=== PATIENT | male | born 1950 | race Caucasian/White ===

== ENCOUNTER 2016-08-15 15:28 | Inpatient (IN) | payer MEDICARE, OTHER ==
[~2016-08-15] VITALS: Ht 170.2 cm; Wt 87.7 kg
--- NOTE | ~2016-08-15 | CN ---
PATIENT NAME:YU GASTON MEDICAL RECORD: [id number] : 46 LOCATION:D. D.2105 ADMIT DATE: 08/15/16 ACCOUNT: [id number] CONSULTING PHYSICIAN: DAHIANA WITT MD REFERRING PHYSICIAN: BARI RASCON MD DATE OF CONSULTATION: 08/16/2016 CHIEF COMPLAINT: Abdominal pain. HISTORY OF PRESENT ILLNESS: The patient has idiopathic pulmonary fibrosis. He has recurrent pancreatitis. This is his fifth episode of pancreatitis. He has known gallstones in the gallbladder and my plan for his pancreatitis is to resolve and then plan laparoscopic cholecystectomy. We discussed the function of the gallbladder how it works and how he might have post-cholecystectomy diarrhea, which may affect him in that, if he has quick transit time, it could affect one of the medicines that is very important for him to take that is a medicine for pulmonary fibrosis. Palpation aggravates. Nothing alleviates. Symptoms are band-like in the epigastrium. They do not radiate to the back. He has had some nausea. This is a consultation note addendum. For the typed portion of the consult note, please see the chart, these would include the past medical and surgical history, allergies, family history, social history as well as current medications. REVIEW OF SYSTEMS: No fatigue, no headache, no chest pain, no chills, no epistaxis, no shortness of breath, no neck stiffness. PHYSICAL EXAMINATION: GENERAL: The patient does not appear acutely ill. He does not appear chronically ill. VITAL SIGNS: Reviewed. HEAD: External ears appear normal. FACE: He has a maye face. NECK: Trachea is midline. EARS: The ears are normal. CHEST: Mildly labored. NECK: Trachea is midline. ABDOMEN: Mildly tender in the epigastrium. EXTREMITIES: No peripheral cyanosis. INTEGUMENT: No rash, no ulcerations. PSYCHIATRIC: Normal affect. NEUROLOGIC: Nonfocal, no lethargy. The patient answers questions appropriately. Moves all extremities well. BACK: No thoracic kyphosis. LYMPHATICS: No lymphangitic streaking of the exposed extremities. IMPRESSION: Recurrent pancreatitis likely gallstone pancreatitis. We reviewed other possible etiologies for pancreatitis and I told him I could not give him a guarantee that removal of his gallbladder would cause the episodes of pancreatitis to cease. PLAN: Laparoscopic cholecystectomy once his pancreatitis resolves. TRANSINT:[id number] Voice Confirmation ID: [id number] DOCUMENT ID: [id number] CONSULT REPORT [id number] YU GASTON ROBERT MD CC: [id number] DICTATION DATE: 08/16/161702 SVP DIGITAL AD SALES: 08/16/16 215 ADM IN [place] [id number] [place] [id number]
--- NOTE | ~2016-08-15 | OP ---
PATIENT NAME: YU GASTON MEDICAL RECORD: [id number] :46 LOCATION:D.M2 D.2105 ADMISSION DATE:08/15/16 SURGEON: DAHIANA WITT MD DATE OF OPERATION: 08/18/2016 PREOPERATIVE DIAGNOSIS: Presumed gallstone pancreatitis. POSTOPERATIVE DIAGNOSES: Presumed gallstone pancreatitis with lower midline adhesions and also hepatomegaly. PROCEDURES: 1. Laparoscopic cholecystectomy. 2. Intraoperative cholangiography without immediate surgeon interpretation. 3. An 18-gauge core needle liver biopsy. SURGEON: Dahiana Witt MD BOAT BUFFER PLASTIC: None. BLOOD LOSS: Minimal. ANESTHESIA: General. COMPLICATIONS: None. The indication for the liver biopsy was hepatomegaly. OPERATIVE COURSE: The patient was conveyed to the operating room electively on 08/18/2016. General anesthesia was induced by the anesthesia staff. The abdomen was sterilely prepped and draped. A small skin charleen was accomplished in the left upper quadrant. A Veress needle was inserted through the skin charleen into the peritoneal cavity. CO2 insufflation was begun. Once a sufficient pneumoperitoneum had been achieved, a 5-mm trocar was inserted through an incision in the right upper quadrant. Under direct internal vision utilizing a television camera, a 12-mm trocar was inserted through an incision at the umbilicus. Another 5-mm trocar was inserted through an incision in the epigastrium. Another 5-mm trocar was inserted through an incision far laterally in the right upper quadrant. Under laparoscopic guidance, I percutaneously accessed the right upper quadrant utilizing an 18-gauge core needle liver biopsy device. Cores were obtained over the convexity of the liver. The biopsy sites were made hemostatic with the electrocautery. I then went about performing the cholangiogram. I advanced the cholangiogram trocar. I punctured the fundus of the gallbladder. I aspirated bile. I then injected dye. Real-time fluoroscopic images were obtained and these are kept in the PACS system for the radiologist to interpret. I aspirated the bile and removed the cholangiogram trocar. The gallbladder was grasped and retracted in cephalad. It was fatty encased. I dissected in the triangle of Calot. I identified 2 cystic arteries and 1 cystic duct. These were clipped multiply and divided between clips. The gallbladder was then excised from its bed in the liver. It was placed within a bag retrieval device and was withdrawn through the umbilical fascia defect. OPERATIVE REPORT [id number] YU GASTON I irrigated and aspirated in the right upper quadrant. There was no bleeding even at low pressure of 8. I added Shamar to the gallbladder fossa for additional hemostasis. The 12-mm trocar was removed. The Stewart-Pedro suture closure device and a 0 Vicryl suture was used to close the umbilical fascia. All trocars were removed and the abdomen desufflated. The skin incision at the umbilicus was closed with interrupted 4-0 Vicryl Rapide sutures. The other skin incisions were closed with interrupted 3-0 and 4-0 Vicryls. Benzoin and Steri-Strips were applied. The patient was then extubated and conveyed to post-anesthesia care unit where he was in stable condition. I will plan for him to be dismissed home tomorrow. TRANSINT:[id number] Voice Confirmation ID: [id number] DOCUMENT ID: [id number] DAHIANA WITT MD CC: [id number] DICTATION DATE: 08/18/162003 PARISH NURSE: 08/19/16 0048 ADM IN [facility] [address] [place] [address]
--- NOTE | ~2016-08-15 | PN ---
PATIENT:YU GASTON MEDICAL RECORD: [id number] LOCATION:D. D.210 ADMISSION DATE: 08/15/16 PROGRESS NOTE DATE OF SERVICE: 08/17/2016 CHIEF COMPLAINT: Pancreatitis. The patient has presumed gallstone pancreatitis. He has had 5 episodes of pancreatitis in the past. His condition is improving. He is having almost no abdominal pain now. His laboratory numbers are normalizing. He is not having any back pain. No nausea. Nothing aggravates. Nothing alleviates. He is really almost asymptomatic. I am going to plan for laparoscopic cholecystectomy, intraoperative cholangiography, possible open procedure, and possible liver biopsy tomorrow. I told him that I cannot guarantee that removal of the gallbladder will resolve his bouts of pancreatitis or prevent them in the future. He elects to proceed. This is a progress note addendum. For the typed portion of the progress note, please see the chart. This would include current medications, past medical and surgical history, social history as well as family history. REVIEW OF SYSTEMS: No nausea, no vomiting, no fever, no chills, no back pain, no abdominal pain, no shortness of breath, no chest pain. The review of systems is negative other than as is described above. PHYSICAL EXAMINATION: GENERAL: The patient does not appear acutely ill. He does not appear chronically ill. VITAL SIGNS: Reviewed. HEAD: External ears appear normal. EYES: Extraocular movements are intact. NECK: Trachea is midline. CHEST: No intercostal retractions. PULMONARY: Nonlabored, no stridor. ABDOMEN: Nontender. No peritonitis to percussion. EXTREMITIES: No peripheral cyanosis. INTEGUMENT: No rash, no ulcerations. PSYCHIATRIC: Normal affect. NEUROLOGIC: Nonfocal, no lethargy. The patient answers questions appropriately and moves all extremities well. BACK: No thoracic kyphosis. LYMPHATIC: No lymphangitic streaking of the exposed extremities. IMPRESSION: Presumed gallstone pancreatitis. PLAN: Continue with IV parenteral narcotic analgesia. Laparoscopic cholecystectomy tomorrow as described above. TRANSINT:[id number] Voice Confirmation ID: [id number] DOCUMENT ID: [id number] PROGRESS NOTE [id number] YU GASTON ROBERT MD CC: [id number] DICTATION DATE: 08/18/162000 CLOUD PHYSICIST: 08/19/16 0601 ADM IN [place] [id number] [place], [place] [id number]
[2016-08-15 16:14] LABS: BASOPHILS 0.1 % (0-2); EOSINOPHILS 2.6 % (0-7); HEMATOCRIT 43.1 % (42.0-54.0); HEMOGLOBIN 14.5 g/dL (13.5-17.5); IMMATURE GRANULOCYTES 0.2 % (0-5); LYMPHOCYTES 18.8 % (15-50); MCH 32.7 pg (26.0-34.0); MCHC 33.6 g/dL (31.0-37.0); MCV 97.1 fL (80.0-100.0); MEAN PLATELET VOLUME 10.2 fL (7.4-10.4); MONOCYTES 8.2 % (2-11); NEUTROPHILS 70.1 % (40-80); RBC 4.44 10x6/uL (4.20-6.10); RDW 12.5 % (11.5-14.5); WBC 12.8 10x3/uL (4.8-10.8)
[2016-08-15 16:23] LABS: PLATELET COUNT 249 10x3/uL (130-400)
[2016-08-15 16:38] LABS: ALBUMIN 3.9 g/dL (3.4-5.0); ALKALINE PHOSPHATASE 102 U/L (46-116); ALT (SGPT) 34 U/L (10-68); BILIRUBIN - TOTAL 0.52 mg/dL (0.2-1.3); CALC OSMOLALITY 270 mosm/kg (275-300); CALCIUM 9.5 mg/dL (8.5-10.1); CARBON DIOXIDE 28.2 mmol/L (21.0-32.0); CHLORIDE - SERUM 98 mmol/L (98-107); GLUCOSE 97 mg/dL (74-106); POTASSIUM - SERUM 4.2 mmol/L (3.5-5.1); PROTEIN - SERUM 8.6 g/dL (6.4-8.2); SODIUM 135 mmol/L (136-145); UREA NITROGEN 16 mg/dL (7-18); eGFR NON AFRICAN AMERICAN 79 mL/min (90-120)
[2016-08-15 16:46] LABS: LIPASE 7442 U/L (73-393)
[2016-08-15 16:55] LABS: AMYLASE - SERUM 1383 U/L (25-115)
--- NOTE | 2016-08-15 18:57 | NUR ---
1850- RECEIVED PT VIA STRETCHER FROM ER STAFF MEMBER. PT IS ALERT AND ORIENTED. UP AD LILIANA. ON 02 AT 2L VIA NC. IV SEEN TO RIGHT AC THAT IS CURRENTLY SALINE LOCKED. WILL DO QUICKSTART AND PASS THIS ALONG TO EYEGLASS FRAME TRUER NURSE.
--- NOTE | 2016-08-15 18:59 | NUR ---
1834- VIVIANE ARGUETA IN ER CALLED AND GAVE REPORT FOR PT. AWAITING PT ARRIVAL NOW.
[2016-08-15] MEDS ORDERED: OFEV 150 MG (19:02)
--- NOTE | 2016-08-15 19:02 | NUR ---
PT STATES THE ONLY MEDICATION HE KNOWS HE TAKES IS OFEV AND HIS WILL KNOW THE REST. PT STATES HE CANNOT NAME ALL OF HIS OTHER MEDICATONS. PT STATES HE WILL HAVE BRING MEDICATIONS UP HERE SO WE CAN DO MED REC. WILL PASS THIS ALONG.
[2016-08-15] MEDS ORDERED: PROVENTIL HFA6.7 GM INH (19:07)
[2016-08-15] MEDS ORDERED: WELLBUTRIN SR150 MG PO (19:08)
[2016-08-15] MEDS ORDERED: NEURONTIN 300300 MG PO (19:09)
[2016-08-15] MEDS ORDERED: OMEPRAZOLE20 M1 PO (19:09)
[2016-08-15] MEDS ORDERED: CALCIUM 500 + D1 TAB PO (19:10)
[2016-08-15] MEDS ORDERED: BAYER CHEWABLE81 MG PO (19:11)
[2016-08-15] MEDS ORDERED: MULTI-DAY VITAM1 TAB PO (19:11)
[2016-08-15] MEDS ORDERED: ZOCOR80 MG PO (19:11)
--- NOTE | 2016-08-15 19:23 | NUR ---
PT AWAKE, ALERT, ORIENTED, LYING IN BED, DENIES ANY ACUTE NEEDS AT THIS TIME, IS IN NO ACUTE DISTRESS. CONTINUE TO MONITOR CLOSELY.
[2016-08-15 19:55] VITALS: BP 169/77
[2016-08-15 20:33] VITALS: BP 169/77; BMI 30.9
[2016-08-16 00:48] VITALS: BP 145/64
--- NOTE | 2016-08-16 02:48 | NUR ---
PT DID EAT 2 ORANGE JELLO'S AND IS DRINKING ICE WATER WITHOUT ANY DIFFICULTY OR NAUSEA. CONTINUE TO MONITOR CLOSELY.
[2016-08-16 04:45] LABS: CHOL - HDL RATIO 2.8 ratio (2.3-4.9); LDL-HDL RATIO 1.3 ratio (1.5-3.5)
[2016-08-16 04:52] VITALS: BP 132/61
--- NOTE | 2016-08-16 07:44 | NUR ---
AM ROUNDING- RECEIVED REPORT FROM TRUST MANAGER ASSISTANT NURSE ROSETTE. PT IS NABILAY LAYING IN BED ON BACK WITH EYES OPEN RESTING. IS AT BEDSIDE. PT IS C/O 8/10 ABDOMINAL PAIN. ON 02 AT 2L VIA NC. NO MONITOR. IV SEEN TO RIGHT AC WITH NS RUNNING AT 125CC. NO NEED AT CURRENT TIME. WILL SEE WHAT PT HAS FOR PAIN AND GIVE ORDERED. WILL CONTINUE TO MONITOR AND CONTINUE WITH PLAN OF CARE.
[2016-08-16 08:57] VITALS: BP 101/65
[2016-08-16 12:00] VITALS: BP 156/66
[2016-08-16 12:18] VITALS: Ht 170.2 cm; Wt 87.7 kg
[2016-08-16 16:00] VITALS: BP 155/76
--- NOTE | 2016-08-16 18:15 | NUR ---
PT IS CURRENTLY LAYING IN BED ON BACK WITH EYES OPEN RESTING. AND GUEST AT BEDSIDE. PT IS CURRENTLY REQUESTING SOMETHING FOR PAIN. INFORMED PT THAT I WILL CHECK TO SEE WHAT HE HAS. WILL CONTINUE TO MONITOR.
--- NOTE | 2016-08-16 19:36 | NUR ---
ASSESSMENT COMPLETE, A&O. 02 AT 2 LITER VIA NC. RSPERATIONS EVEN AND UNLABORED. IV TO RIGHT AC WITH NS INFUSING AT 125 CC/HR. PT DENIES PAIN OR NEEDS, BED LOW, CL IN REACH, AT BED SIDE.
[2016-08-16 20:00] VITALS: BP 159/74
--- NOTE | 2016-08-16 23:24 | NUR ---
RESTING WITH EYES CLOSED, RESPERATIONS EVEN, NO S/S DISTRESS NOTED.
[2016-08-17] VITALS: BP 133/59
--- NOTE | 2016-08-17 00:08 | NUR ---
DILAUDID 1 MG GIVEN FOR C/O PAIN
[2016-08-17 04:00] VITALS: BP 162/72
[2016-08-17 05:08] LABS: BASOPHILS 0.1 % (0-2); EOSINOPHILS 0.8 % (0-7); HEMATOCRIT 37.2 % (42.0-54.0); HEMOGLOBIN 12.9 g/dL (13.5-17.5); IMMATURE GRANULOCYTES 0.3 % (0-5); LYMPHOCYTES 9.4 % (15-50); MCH 33.1 pg (26.0-34.0); MCHC 34.7 g/dL (31.0-37.0); MCV 95.4 fL (80.0-100.0); MEAN PLATELET VOLUME 10.6 fL (7.4-10.4); MONOCYTES 9.6 % (2-11); NEUTROPHILS 79.8 % (40-80); PLATELET COUNT 217 10x3/uL (130-400); RDW 12.4 % (11.5-14.5)
[2016-08-17 05:13] LABS: WBC 17.1 10x3/uL (4.8-10.8)
[2016-08-17 05:42] LABS: ALBUMIN 3.1 g/dL (3.4-5.0); ALKALINE PHOSPHATASE 87 U/L (46-116); CALCIUM 8.8 mg/dL (8.5-10.1); CARBON DIOXIDE 26.5 mmol/L (21.0-32.0); CHLORIDE - SERUM 91 mmol/L (98-107); CREATININE - SERUM 0.8 mg/dL (0.6-1.3); GLUCOSE 73 mg/dL (74-106); LIPASE 691 U/L (73-393); POTASSIUM - SERUM 4.4 mmol/L (3.5-5.1); PROTEIN - SERUM 7.7 g/dL (6.4-8.2); SODIUM 127 mmol/L (136-145); eGFR NON AFRICAN AMERICAN > 90 mL/min (90-120)
[2016-08-17 05:45] LABS: ALT (SGPT) 23 U/L (10-68); CALC OSMOLALITY 251 mosm/kg (275-300); UREA NITROGEN 6 mg/dL (7-18)
--- NOTE | 2016-08-17 07:24 | NUR ---
AM ROUNDING MADE WITH PATIENT STATING PAIN IS 8/10 MAINLY SORENESS TO CHEST. FEMALE MEMBER IN CHAIR AT BEDSIDE. ON O2 2L PER NC. RIGHT AC SEENW ITH NS INFUSING AT 125 CC/HR.
[2016-08-17 08:00] VITALS: BP 161/86
--- NOTE | 2016-08-17 10:12 | NUR ---
COMPLAINTS OF UPPER ABDOMINAL PAIN 12/05, REQUESTED DILAUDID GIVEN.
[2016-08-17 12:17] VITALS: BP 134/73
[2016-08-17 16:36] VITALS: BP 159/71
[2016-08-17 19:00] VITALS: BP 127/81
--- NOTE | 2016-08-17 19:38 | NUR ---
ASSESSMENT COMPLETE, A&O. IV TO RIGHT AC WITH NS INFUSING AT 125, SITE CLEAN AND DRY. PT DENIES PAIN OR NEEDS AT THIS TIME, AT BED SIDE.
--- NOTE | 2016-08-18 01:00 | NUR ---
CALL LIGHT IN REACH, WILL CONTINUE WITH PLAN OF CARE.
[2016-08-18 04:00] VITALS: BP 148/74
[2016-08-18 05:47] LABS: BASOPHILS 0.1 % (0-2); EOSINOPHILS 1.2 % (0-7); HEMATOCRIT 33.7 % (42.0-54.0); HEMOGLOBIN 11.8 g/dL (13.5-17.5); IMMATURE GRANULOCYTES 0.3 % (0-5); LYMPHOCYTES 9.8 % (15-50); MCH 33.1 pg (26.0-34.0); MCV 94.7 fL (80.0-100.0); MEAN PLATELET VOLUME 10.6 fL (7.4-10.4); MONOCYTES 10.9 % (2-11); NEUTROPHILS 77.7 % (40-80); PLATELET COUNT 211 10x3/uL (130-400); RBC 3.56 10x6/uL (4.20-6.10); RDW 12.3 % (11.5-14.5); WBC 12.9 10x3/uL (4.8-10.8)
[2016-08-18 06:18] LABS: ALBUMIN 2.5 g/dL (3.4-5.0); ALKALINE PHOSPHATASE 109 U/L (46-116); ALT (SGPT) 23 U/L (10-68); AMYLASE - SERUM 44 U/L (25-115); CALC OSMOLALITY 255 mosm/kg (275-300); CALCIUM 8.4 mg/dL (8.5-10.1); CARBON DIOXIDE 25.7 mmol/L (21.0-32.0); CHLORIDE - SERUM 94 mmol/L (98-107); CREATININE - SERUM 0.8 mg/dL (0.6-1.3); GLUCOSE 81 mg/dL (74-106); LIPASE 195 U/L (73-393); POTASSIUM - SERUM 3.8 mmol/L (3.5-5.1); PROTEIN - SERUM 6.8 g/dL (6.4-8.2); SODIUM 129 mmol/L (136-145); UREA NITROGEN 7 mg/dL (7-18); eGFR NON AFRICAN AMERICAN > 90 mL/min (90-120)
[2016-08-18 08:11] VITALS: BP 118/69
[2016-08-18 12:08] VITALS: BP 145/71
--- NOTE | 2016-08-18 12:31 | NUR ---
IV TO RIGHT AC LEAKING. RE-SITED TO LEFT INNER WRIST X 2 STICKS WITH 22G.
--- NOTE | 2016-08-18 12:53 | NUR ---
Nutrition Follow Up: Chart reviewed. Pt to have lap ayesha. Wt stable. No BM since admit. Labs noted - Na low. Meds reviewed. Rec advancing diet as tolerated when medically feasible. RD will continue to monitor pt progress.
[2016-08-18 15:17] VITALS: BP 158/71
--- NOTE | 2016-08-18 16:31 | NUR ---
EKG DONE ORFERED.
--- NOTE | 2016-08-18 17:39 | NUR ---
TO OR VIA BED.
[2016-08-18 19:00] VITALS: BP 154/75
--- NOTE | 2016-08-18 20:17 | NUR ---
PT AWOKE RESTLESS AND DISORIENTED. PT HAS PULLED OFF OXYGEN MULTIPLE TIMES AND HAS TRIED TO CLIMB OUT OF BED. CONSULTED ANESTHESIA. V/O RECEIVED TO GIVE 2MG OF VERSED.
--- NOTE | 2016-08-18 20:28 | NUR ---
PT AWOKE RIGHT AT TRANSFER BACK TO ROOM FROM RECOVERY. PT WAS RESTLESS SAYING"THIS IS NOT GOING TO WORK" WHILE TRYING TO CLIMB OUT OF BED. PT AGAIN WAS TRYING TO TAKE NASAL CANNULA OFF FACE. ADMINISTEREED OTHER 1MG OF VERSED PER ORDER.
--- NOTE | 2016-08-18 20:48 | NUR ---
PT RECEIVED TO ROOM 2105 AT THIS TIME VIA HOSPITAL BED ACCOMPANIED BY RECOVERY ROOM NURSES. FAMILY MEMBER AT BEDSIDE.ASSESSMENT COMPLETED PER FLOW SHEET AT THIS TIME. HEART RRR. BOWEL SOUNDS HYPOACTIVE X4 QUADRENTS. RESPIRATIONS EVEN, UN-LABORED. PT RESTING QUIETLY AT THIS TIME WITH EYES CLOSED. NO NEEDS NOTED. BED LOW. PHONE AND CALL LIGHT IN REACH. SRX2.
--- NOTE | 2016-08-18 23:00 | NUR ---
PT WAS AGGRAVATED AND COMBATIVE AFTER WAKING UP FROM SEDATION, MAJORITY OF POST-OP VITALS WERE NOT RETRIEVED DUE TO PT PULLING BP CUFF OFF CONTINUOUSLY.
--- NOTE | 2016-08-18 23:00 | NUR ---
PT IV PULLED OUT AT THIS TIME. CATHETER TIP INTACT. PT REFUSES TO BE STUCK AGAIN AT THIS TIME.
--- NOTE | 2016-08-18 23:45 | NUR ---
SPOKE WITH DR. BENTLEY CONCERNING PT BEING IN PAIN AND NOT WANTING ANOTHER IV. HE STATES TO ORDER [place] Q4HPRN AT THIS TIME.
[2016-08-19] VITALS: BP 146/82
--- NOTE | 2016-08-19 00:40 | NUR ---
PT SITTING UP ON SIDE OF BED WITH FAMILY AT BEDSIDE. PT STILL RATING PAIN 6/10. PT WANTING TO GO HOME AT THIS TIME. REQUESTS TO SPEAK TO CHARGE NURSE. VIVIANE RIVAS NOTIFIED.
--- NOTE | 2016-08-19 02:07 | NUR ---
PT RESTING QUIETLY AT THIS TIME WITH EYES CLOSED. RESPIRATIONS EVEN, NON-LABORED. NO ACUTE DISTRESS NOTED AT THIS TIME. BED LOW. PHONE AND CALL LIGHT IN REACH. SRX2.
--- NOTE | 2016-08-19 03:10 | NUR ---
ADMINSITERED NORCO PO PER ORDERS AT THIS TIME FOR PAIN PT RATES 5/10. DENIES OTHER NEEDS. FAMILY REMAINS AT BEDSIDE. BED LOW. PHONE AND CALL LIGHT IN REACH. SRX2.
[2016-08-19 04:00] VITALS: BP 147/86
--- NOTE | 2016-08-19 04:50 | NUR ---
PT RESTING QUIETLY AT THIS TIME. AROUSED EASILY. DENIES NEEDS. BED LOW. PHONE AND CALL LIGHT IN REACH. SRX2.
--- NOTE | 2016-08-19 05:15 | NUR ---
PT SITTING UP ON SIDE OF BED WITH FAMILY MEMBER AT BEDSIDE. LAB IN ROOM AT THIS TIME. PT DENIES NEEDS. BED LOW. PHONE AND CALL LIGHT IN REACH. SRX2.
[2016-08-19 05:28] LABS: BASOPHILS 0 % (0-2); EOSINOPHILS 0.1 % (0-7); HEMATOCRIT 37.5 % (42.0-54.0); HEMOGLOBIN 12.9 g/dL (13.5-17.5); IMMATURE GRANULOCYTES 0.5 % (0-5); LYMPHOCYTES 7.9 % (15-50); MCH 33.1 pg (26.0-34.0); MCHC 34.4 g/dL (31.0-37.0); MCV 96.2 fL (80.0-100.0); MEAN PLATELET VOLUME 10.2 fL (7.4-10.4); MONOCYTES 6.1 % (2-11); NEUTROPHILS 85.4 % (40-80); PLATELET COUNT 264 10x3/uL (130-400); RDW 12.5 % (11.5-14.5); WBC 10.3 10x3/uL (4.8-10.8)
[2016-08-19 05:45] LABS: ALBUMIN 2.8 g/dL (3.4-5.0); ANION GAP 16.2 mmol/L (8-16); BILIRUBIN - TOTAL 1.21 mg/dL (0.2-1.3); CALCIUM 8.7 mg/dL (8.5-10.1); CARBON DIOXIDE 22.8 mmol/L (21.0-32.0); MAGNESIUM - SERUM 2.1 mg/dL (1.8-2.4); PHOSPHOROUS 2.9 mg/dL (2.5-4.9); PROTEIN - SERUM 7.9 g/dL (6.4-8.2)
[2016-08-19 05:47] LABS: CREATININE - SERUM 1.1 mg/dL (0.6-1.3)
--- NOTE | 2016-08-19 07:30 | NUR ---
PT REQ AND REC'D PRN PAIN MEDICATION FOR PAIN 12/05 TO ABD. PT FAMILY AT BEDSIDE ASSISTING WITH NEEDS. WCTM.
[2016-08-19 08:00] VITALS: BP 138/61
[2016-08-19] MEDS ORDERED: HYDROCODON-ACE1 EAC7 PO (08:18)
--- NOTE | 2016-08-19 10:30 | NUR ---
PT UP IN WC. PT FAMILY TAKING HIM AROUND THE HOSPITAL TO "GET OUT OF THE ROOM FOR A BIT."
--- NOTE | 2016-08-19 11:33 | NUR ---
PT BACK IN ROOM. FAMILY AT BEDSIDE. PT STATES "JUST WATING TO LEAVE." WCTM.
== END 2016-08-19 15:23 | disposition home or self-care (01) | DRG 419 ==
LOC: D.ER 15:28 → D.M2 17:29
PROVIDERS: Emergency Medicine; Surgery; ADMIT Family Medicine
PROC: BF111ZZ Fluoroscopy of Biliary and Pancreatic Ducts using Low Osmolar Contrast (ICD-10-PCS; 2016-08-18)
PROC: 0FT44ZZ Resection of Gallbladder, Percutaneous Endoscopic Approach (ICD-10-PCS; principal; 2016-08-18 13:45)
PROC: 0FB04ZX Excision of Liver, Percutaneous Endoscopic Approach, Diagnostic (ICD-10-PCS; 2016-08-18 13:45)
DX: K85.10 Biliary acute pancreatitis without necrosis or infection (principal); I10 Essential (primary) hypertension; E78.5 Hyperlipidemia, unspecified; K80.20 Calculus of gallbladder without cholecystitis without obstruction; R16.0 Hepatomegaly, not elsewhere classified; K66.0 Peritoneal adhesions (postprocedural) (postinfection); K21.9 Gastro-esophageal reflux disease without esophagitis; J84.112 Idiopathic pulmonary fibrosis

== ENCOUNTER 2016-08-25 14:49 | Emergency (ER) | payer MEDICARE, OTHER ==
[2016-08-16 12:18] VITALS: BMI 27.4
[~2016-08-25 14:49] MED LIST: BAYER CHEWABLE81 MG PO; CALCIUM 500 + D1 TAB PO; HYDROCODON-ACE1 EAC7 PO; MULTI-DAY VITAM1 TAB PO; NEURONTIN 300300 MG PO; OFEV 150 MG; OMEPRAZOLE20 M1 PO; PROVENTIL HFA6.7 GM INH; WELLBUTRIN SR150 MG PO; ZOCOR80 MG PO
[2016-08-25 16:32] LABS: BASOPHILS 0.2 % (0-2); EOSINOPHILS 0.8 % (0-7); HEMOGLOBIN 13.4 g/dL (13.5-17.5); IMMATURE GRANULOCYTES 0.6 % (0-5); LYMPHOCYTES 17.8 % (15-50); MCH 32.7 pg (26.0-34.0); MCHC 34.4 g/dL (31.0-37.0); MCV 95.1 fL (80.0-100.0); MEAN PLATELET VOLUME 10.1 fL (7.4-10.4); MONOCYTES 5.6 % (2-11); RDW 12.8 % (11.5-14.5); WBC 12.6 10x3/uL (4.8-10.8)
[2016-08-25 16:45] LABS: ALBUMIN 2.3 g/dL (3.4-5.0); ALKALINE PHOSPHATASE 262 U/L (46-116); ALT (SGPT) 62 U/L (10-68); BILIRUBIN - TOTAL 0.73 mg/dL (0.2-1.3); CALC OSMOLALITY 264 mosm/kg (275-300); CALCIUM 8.7 mg/dL (8.5-10.1); CARBON DIOXIDE 26.3 mmol/L (21.0-32.0); CHLORIDE - SERUM 95 mmol/L (98-107); GLUCOSE 73 mg/dL (74-106); LIPASE 163 U/L (73-393); POTASSIUM - SERUM 3.3 mmol/L (3.5-5.1); PROTEIN - SERUM 7.4 g/dL (6.4-8.2); SODIUM 132 mmol/L (136-145); UREA NITROGEN 16 mg/dL (7-18); eGFR NON AFRICAN AMERICAN 79 mL/min (90-120)
[2016-08-25 16:51] LABS: PLATELET COUNT 444 10x3/uL (130-400)
== END 2016-08-25 20:12 | disposition home or self-care (01) ==
LOC: D.ER 14:49
PROVIDERS: Physician Assistant
DX: R11.2 Nausea with vomiting, unspecified (principal); R19.7 Diarrhea, unspecified; Z98.890 Other specified postprocedural states; K85.90 Acute pancreatitis without necrosis or infection, unspecified; J84.112 Idiopathic pulmonary fibrosis; K91.3 Postprocedural intestinal obstruction

== ENCOUNTER → 2016-09-13 14:04 | Outpatient (CLI) | payer MEDICARE, OTHER ==
[2016-08-16 12:18] VITALS: BMI 27.4
== END | disposition home or self-care (01) ==
LOC: D.CT 14:04
DX: R41.0 Disorientation, unspecified (principal)

== ENCOUNTER 2016-10-16 10:16 | Day surgery (SDC) | payer MEDICARE, OTHER ==
[~2016-10-16] VITALS: Ht 170.2 cm; Wt 69.1 kg
[2016-10-16] MEDS ORDERED: PLAVIX75 MG PO (11:06)
[2016-10-16] MEDS ORDERED: ZANTAC150 MG PO ×2 (11:08)
[2016-10-16] MEDS ORDERED: SYMBICORT 16010.2 GM INH (11:10)
[2016-10-16 11:15] VITALS: BP 123/79; Ht 170.2 cm; Wt 69.1 kg
[2016-10-16 12:17] LABS: HEMATOCRIT 41.4 % (42.0-54.0); HEMOGLOBIN 13.9 g/dL (13.5-17.5); MCH 32.6 pg (26.0-34.0); MCHC 33.6 g/dL (31.0-37.0); MCV 97.2 fL (80.0-100.0); MEAN PLATELET VOLUME 10.5 fL (7.4-10.4); RBC 4.26 10x6/uL (4.20-6.10); RDW 13.7 % (11.5-14.5); WBC 11.6 10x3/uL (4.8-10.8)
--- NOTE | 2016-10-16 15:05 | HP ---
PATIENT: YU EMERY MEDICAL RECORD: [id number] ACCOUNT: [id number] LOCATION:LuanDashawnINNA : 46 ADMISSION DATE: 10/16/16 HISTORY AND PHYSICAL EXAMINATION Mr. Emery has been having intractable nausea and vomiting. He recently underwent laparoscopic cholecystectomy. This has really not helped with his nausea and vomiting very much. It appeared that he had a stroke around the time of the laparoscopic cholecystectomy. He has dysphagia. He has had some hematemesis as well. He last took Plavix yesterday. We are planning for EGD with esophageal dilation. TRANSINT:[id number] Voice Confirmation ID: [id number] DOCUMENT ID: [id number] DAHIANA WITT MD at 1505 CC: MALLORY TUTTLE [id number] DICTATION DATE: 10/16/16 1318 NURSING AIDE: 10/16/16 1329 [facility] [address] [place] [address]
--- NOTE | 2016-10-17 13:00 | OP ---
PATIENT NAME: YU GASTON MEDICAL RECORD: [id number] :46 LOCATION:D.OPS ADMISSION DATE: SURGEON: VENTURA WITT MD DATE OF OPERATION: 10/16/2016 PREOPERATIVE DIAGNOSES: 1. Dysphagia. 2. Intractable nausea and vomiting. 3. Gastroesophageal reflux. POSTOPERATIVE DIAGNOSES: 1. Dysphagia. 2. Intractable nausea and vomiting. 3. Gastroesophageal reflux. PROCEDURE: 1. Esophagogastroduodenoscopy with antral biopsies. 2. Esophageal dilation through the catheter to a 54-Citizen Of [place] balloon. SURGEON: Ventura Witt MD ENERGY MANAGER: None. BLOOD LOSS: Minimal. ANESTHESIA: IV sedation. COMPLICATIONS: None. The risks, possible complications, alternatives to the procedure were discussed with the patient. He elects to proceed. ENDOSCOPIC COURSE: The patient was conveyed to endoscopy suite electively on 10/16/2016. IV sedation was induced by the anesthesia staff. A bite block was inserted. A gastroscope was inserted into the mouth. It was advanced easily into the hypopharynx. The esophagus was easily intubated as were the stomach and duodenum. Upon withdrawal, retroflexed and angulus views were obtained. Antral biopsies were obtained. I withdrew into the cardia of the stomach. I advanced it through the catheter balloon. I then sequentially dilated the entire esophagus to 54-Citizen [place]. The dilation balloon was then removed. I re-endoscoped the patient's esophagus and stomach. There had been no evidence of false passage or perforation. The endoscope was then withdrawn under direct vision. The patient was then conveyed back to his room. I will see him in the office in 2-3 weeks. TRANSINT:[id number] Voice Confirmation ID: [id number] DOCUMENT ID: [id number] OPERATIVE REPORT [id number] YU GASTON VENTURA WITT MD at 1300 CC: [id number] DICTATION DATE: 10/16/16 1352 RECRUITMENT CONSULTANT: 10/16/16 1507 [facility] 10/16/[address] [address]
== END 2016-10-16 15:30 | disposition home or self-care (01) ==
LOC: D.OPS 10:16
PROVIDERS: Anesthesiology
DX: R13.10 Dysphagia, unspecified (principal); K21.9 Gastro-esophageal reflux disease without esophagitis; Z79.02 Long term (current) use of antithrombotics/antiplatelets; Z01.812 Encounter for preprocedural laboratory examination

== ENCOUNTER → 2016-11-03 10:17 | Outpatient (CLI) | payer MEDICARE, OTHER ==
[2016-10-16 11:15] VITALS: BMI 23.8
[~2016-11-03 10:17] MED LIST changes: +PLAVIX75 MG PO; +SYMBICORT 16010.2 GM INH; +ZANTAC150 MG PO
== END | disposition home or self-care (01) ==
LOC: D.LABREF 10:17
DX: R19.7 Diarrhea, unspecified (principal)

== ENCOUNTER → 2016-12-05 14:00 | Outpatient (CLI) | payer MEDICARE, OTHER ==
[2016-10-16 11:15] VITALS: BMI 23.8
== END | disposition home or self-care (01) ==
LOC: D.MRI 14:00
DX: M25.512 Pain in left shoulder (principal)

== ENCOUNTER → 2016-12-06 12:09 | Outpatient (CLI) | payer MEDICARE, OTHER ==
[2016-10-16 11:15] VITALS: BMI 23.8
--- NOTE | 2016-12-10 07:02 | EEG ---
PATIENT:YU GASTON DATE OF SERVICE: 12/06/16 MEDICAL RECORD: [id number] DATE OF : 46 LOCATION: ERNESTO ADMISSION DATE: 12/06/16 REFERRING PHYSICIAN: INTERPRETING PHYSICIAN: TOYA GREENE MD DATE OF SERVICE: 12/06/2016 Referred by myself as an outpatient. ELECTROENCEPHALOGRAM NUMBER: [id number]. DATE OF EXAMINATION: 12/06/2016 at 12:15 p.m. DATE OF : 1950 TECHNICAL DATA: This electroencephalographic recording consisted of approximately 20 minutes of data collection utilizing the international 10/20 system of electrode placement and both referential and non-referential montages. Sixteen channels of electrocerebral recording are accompanied by a 17th channel dedicated to the electrocardiographic rhythm and 2 channels of electromyographic recording. Recording is performed in the awake and drowsy states utilizing activation by photic stimulation. ELECTROENCEPHALOGRAPHIC DATA: The awake state comprises approximately 80% of the recorded electrocerebral activity. Electromyographic artifact is prominent and rapid eye movements are seen. The posterior dominant background consists of a well-developed, symmetric, rhythmic, waxing and waning alpha activity of 8-9 Hz, which is suppressed by eye opening. The drowsy state comprises the remaining portion of the recorded electrocerebral activity. Electromyographic artifact is diminished and rapid eye movements are not seen. The posterior dominant background is at times relatively suppressed. No abnormal or focal slowing is identified. No epileptiform discharges are seen. Photic stimulation induces no abnormal change in the recorded electrocerebral activity. INTERPRETATION: Normal (awake and drowsy). This is a normal electroencephalographic recording. TRANSINT:[id number] Voice Confirmation ID: [id number] DOCUMENT ID: [id number] TOYA GREENE MD at 0702 CC: [id number] DICTATION DATE: 12/08/16 0644 HISTORIOGRAPHY TEACHER: 12/08/16 0729 [facility] CLI 12/06/16 [place] [id number] [place] [address]
== END | disposition home or self-care (01) ==
LOC: D.CN 12:09
DX: R11.10 Vomiting, unspecified (principal)

== ENCOUNTER → 2018-01-22 13:37 | Outpatient (CLI) | payer MEDICARE, OTHER ==
[2016-10-16 11:15] VITALS: BMI 23.8
== END | disposition home or self-care (01) ==
LOC: D.MRI 13:30
DX: M25.552 Pain in left hip (principal); M25.551 Pain in right hip

== ENCOUNTER → 2018-11-27 13:19 | Outpatient (CLI) | payer MEDICARE, OTHER ==
[2016-10-16 11:15] VITALS: BMI 23.8
== END | disposition home or self-care (01) ==
LOC: D.RAD 13:19
PROVIDERS: ATTEND Student in an Organized Health Care Education/Training Program
DX: R13.10 Dysphagia, unspecified (principal)